=== PATIENT | male | born 1965 ===

== ENCOUNTER 2022-03-12 23:07 | Emergency (ER) | payer OTHER ==
[2022-03-13 00:07] LABS: BASOPHIL 0.4 % (0-2); EOSINOPHIL 4.8 % (0-5); HCT 43.4 % (42.0-52.0); HGB 14.7 g/dl (13.2-18.0); LYMPHOCYTE 29.4 % (15-48); MCH 30.4 pg (25.0-31.0); MCHC 33.9 g/dL (32.0-36.0); MCV 89.7 fL (78.0-100.0); MONOCYTE 9.1 % (0-12); MPV 10.4 fL (6.0-9.5); NRBC 0; PLT 231 K/uL (150-400); RBC 4.84 M/uL (4.70-6.00); RDW 13.5 % (11.5-14.0)
[2022-03-13 00:28] LABS: BILIRUBIN - TOTAL 0.3 mg/dL (0.2-1.0); BUN/CREAT RATIO (CALC) 16.3 RATIO; CREATININE 1.23 mg/dL (0.67-1.17); GLOBULIN (CALCULATION) 3.6 g/dL; TOTAL PROTEIN 7.6 g/dL (6.4-8.2)
[2022-03-13] MEDS ORDERED: BACTRIM DS TAB1 EACH PO (00:29)
[2022-03-13 01:47] LABS: BILIRUBIN NEGATIVE (NEGATIVE); BLOOD 2+ Ery/uL (NEGATIVE); CLARITY CLEAR (CLEAR); COLOR YELLOW (YELLOW); GLUCOSE (U) NORMAL (NORMAL); LEUKOCYTES NEGATIVE Leu/uL (NEGATIVE); NITRITE NEGATIVE (NEGATIVE); PROTEIN NEGATIVE (NEGATIVE); SPECIFIC GRAVITY >=1.030 (1.001-1.030); UROBILINOGEN 0.2 mg/dL (0.2-1.0)
[2022-03-13 01:56] LABS: BACTERIA TRACE
[2022-03-13 01:57] LABS: AMORPHOUS URATES CRYSTALS TRACE
== END 2022-03-13 01:43 | disposition home or self-care (01) ==
LOC: FER 23:07
PROVIDERS: Internal Medicine
DX: L03.314 Cellulitis of groin (principal); N21.0 Calculus in bladder; Z28.310 Unvaccinated for COVID-19
CPT/HCPCS: 36415; 80053; 81001; 83690; 84145; 85025; J0696; J1100